=== PATIENT | male | born 1980 | race Caucasian/White ===

== ENCOUNTER 2016-11-21 20:32 | Inpatient (IN) | payer OTHER ==
--- NOTE | ~2016-11-21 | OR ---
Unit #: [id number] #: [id number] Patient: BRAD COLE [id number] [address] [place], [place] [address] [id number] MR#: [id number] NAME: BRAD COLE ROOM: [facility] Date of Procedure: 11/21/2016 Admission Date: 11/21/2016 Surgeon: Kerri Terrazas M.D. : 1980 Attending Physician: Darlene Terrazas M.D. Primary Care Physician: [facility]. PROCEDURE OPERATIVE NOTE PROCEDURE PERFORMED Right femoral line central line placement with ultrasound guidance. INDICATION FOR PROCEDURE Status post cardiac arrest. DESCRIPTION OF THE PROCEDURE An informed consent was waived as the procedure was emergent. The patient was prepped and positioned a proper way. Then, was cleaned with chlorhexidine and body drape was applied. Then, with ultrasound guidance, a needle was inserted in the right femoral vein and good blood flow was obtained. Guidewire was inserted and the needle was removed. A catheter was inserted over the guidewire and the guidewire was removed. The catheter was flushed appropriately and sutured in place. Biopatch and clean dressing were applied. Dictated by... Kerri Terrazas M.D. EA/barbie TD: 11/22/2016 05:59 JOB #: [id number] PROCEDURE OPERATIVE NOTE X KERRI TOUSSAINT MD PROCEDURE OPERATIVE NOTE
--- NOTE | ~2016-11-21 | CR72 ---
[facility] A Service of [facility] RADIOLOGY TEXT RESULTS PATIENT: BRAD COLE LOCATION: [address] : [birth year] UNIT #: [id number] AGE: [address]: Court Rausch MD SEX: M ORDER DR: [id number] [facility] [address]. [place], [place] [address] [id number] MR#: [id number] Acc #: [id number] NAME: BRAD COLE. : 1980 SEX: M STUDY DATE/TIME: 11/23/2016 6:05 UNIT: [facility] ROOM: [facility] STUDY DESCRIPTION: CR Chest Single View Portable Attending Physician: Hermila Wiggins M.D. Ordering Physician: Carole Terrazas M.D. Primary Care Physician: [facility]. MEDICAL IMAGING REPORT This report is preliminary unless electronic signature is present EXAM Portable chest, 11/23 INDICATION Status post respiratory failure and cardiac arrest from overdose. FINDINGS AP portable chest is compared with 11/21/2016. ET tube tip is just below the thoracic inlet about 8.0 cm above the oscar. Consider advancing the tube at least 3.0 cm. There are bilateral perihilar infiltrates but they are much improved since the prior study. This may reflect resolving edema or component of pneumonia. No pneumothorax is seen. Heart size normal. Dictated by... Dane Jay Jr., M.D. THIS IS AN ELECTRONICALLY VERIFIED REPORT Dane Jay Jr., M.D. at 11/23/2016 3:50 PM FELTON/lj TD: 11/23/2016 09:10 JOB #: [id number] MEDICAL IMAGING REPORT COPY
--- NOTE | ~2016-11-21 | CR72 ---
[facility] A Service of [facility] & [facility] RADIOLOGY TEXT RESULTS PATIENT: BRAD COLE LOCATION: [place] [id number] : [birth year] UNIT #: [id number] AGE: [address]: Hermila Wiggins MD SEX: M ORDER DR: [id number] [facility] [address]. [place], [place] [address] [id number] I MR#: [id number] Acc #: [id number] NAME: BRAD COLE. : 1980 SEX: M STUDY DATE/TIME: 11/21/2016 20:19 UNIT: [facility] ROOM: [facility] STUDY DESCRIPTION: CR Chest Single View Portable Attending Physician: Hermila Wiggins M.D. Ordering Physician: Meena Morales M.D. [facility] MED[facility]AG[facility] REPORT This report is preliminary unless electronic signature is present EXAM PA and lateral chest HISTORY Unresponsive following heroin overdose today. ETT placement. Respiratory failure. FINDINGS ETT tip is 7.5 cm above the oscar. There are moderately extensive diffuse bilateral pulmonary infiltrates, new compared to 11/11/2016, which could be due to pneumonia or edema. Cardiac and mediastinal contours are normal. Dictated by... Jarvis Tong M.D. THIS IS AN ELECTRONICALLY VERIFIED REPORT Jarvis Tnog M.D. at 11/22/2016 3:15 PM CAMILLE/lj TD: 11/22/2016 08:14 JOB #: [id number] MEDICAL IMAGING REPORT COPY
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
--- NOTE | ~2016-11-21 | EKG ---
PATIENT: BRAD COLE UNIT #: [id number] Ventricular Rate: 136 BPM Atrial Rate: 133 BPM QRS Duration: 86 ms Q-T Interval: 294 ms QTC Calculation(Bezet): 442 ms Calculated R [place]: 69 degrees Calculated T [place]: 15 degrees Diagnosis Line: Atrial fibrillation with rapid ventricular Diagnosis Line: response Diagnosis Line: Nonspecific ST abnormality Diagnosis Line: Abnormal ECG Diagnosis Line: When compared with ECG of 21-NOV-2016 19:17, Diagnosis Line: (unconfirmed) Diagnosis Line: Atrial fibrillation has replaced Sinus rhythm Diagnosis Line: Vent. rate has increased BY 52 BPM Diagnosis Line: Criteria for Septal infarct are no longer Present Diagnosis Line: ST now depressed in Anterolateral leads Diagnosis Line: T wave inversion now evident in Inferior leads Diagnosis Line: Confirmed by NIA PALMER MD ([id number]) on 11/22/2016 Diagnosis Line: 7:08:10 AM INTERPRETING MD: ESTELA FELIZ
--- NOTE | ~2016-11-21 | DS ---
Unit #: [id number] #: [id number] Patient: BRAD COLE [id number] [address] [address] [id number] I MR#: [id number] NAME: BRAD COLE. ROOM: [facility] Age: 36 Sex: M Admission Date: 11/21/2016 : 1980 Discharge Date: 11/23/2016 Attending Physician: Court Rausch M.D. Primary Care Physician: [facility]. DISCHARGE SUMMARY SUMMARY Please see H and P for complete details of initial part of hospital course. The patient is a 36-year-old male, prior history of IV drug abuse, heroin, who was brought to the emergency department status post intubation and resuscitated on arrival by EMS services. He was noted to be in acute cardiopulmonary arrest. EMS responded initially to the patient's home. He was unresponsive. He was noted to be in PEA on arrival. He received Narcan, epinephrine. He was down for approximately 20 minutes, from 1902 to 1925. His ABG on arrival reveals a pH of 6.8, pCO2 of 91, pO2 of 165, lactate 9.6. CT head was performed on day of admission which did reveal cerebral edema as well as questionable effacement of the basilar cisterns. He was maintained on ventilator support. He was weaned off of sedation. He had no appreciable neurological response. He did not respond to any painful stimuli. Discussion was then initiated with family after pulmonary services and cardiology services and both recommended comfort care measures only and his overall prognosis was poor. After reviewing his case with the patient's father, who was present at bedside, all family members have agreed to withdrawal current ventilator support as the felt as though the patient would not have wanted to live in this current state. Therefore, his ventilator will be subsequently discontinued and comfort care measures will be initiated. The patient's family and father are well aware of his overall poor prognosis. FINAL/CURRENT CLINICAL DIAGNOSES 1. Resuscitated arrest. 2. Pulseless electrical activity times approximately 20 minutes. 3. Intravenous drug abuse. 4. Hepatitis C. 5. Anoxic encephalopathy. Unit #: [id number] #: [id number] Patient: BRAD COLE DISCHARGE PLAN Comfort care measures only. Dictated by... Jose Lugo TD: 11/26/2016 06:45 JOB #: [id number] DISCHARGE SUMMARY X Court Rausch MD X DISCHARGE SUMMARY
--- NOTE | ~2016-11-21 | CT71 ---
[facility] A Service of [facility] RADIOLOGY TEXT RESULTS PATIENT: BRAD COLE LOCATION: [place] [address] : [birth year] UNIT #: [id number] AGE: [address]: Hermila Wiggins MD SEX: M ORDER DR: [id number] [facility] [address]. [place], [place] [address] [id number] I MR#: [id number] Acc #: [id number] NAME: BRAD COLE. : 1980 SEX: M STUDY DATE/TIME: 11/21/2016 20:49 UNIT: [facility] ROOM: [facility] STUDY DESCRIPTION: CT Head Wo Contrast Attending Physician: Hermila Wiggins M.D. Ordering Physician: Meena Morales M.D. [facility] MED[facility]AGING REPORT This report is preliminary unless electronic signature is present EXAM Noncontrast head CT. HISTORY Altered mental status. Cardiac arrest, unresponsive today. COMPARISON Comparison head CT 09/02/2011, TECHNIQUE This CT exam was performed with one or more of the following radiation dose reduction techniques: automatic exposure control, adjustment of mA and/or kV according to patient size, and iterative reconstruction. FINDINGS Axial noncontrast imaging of the brain demonstrates diffuse decreased attenuation of the periventricular white matter. There is also questionable as effacement of the basilar cisterns, particularly about the kevin, and midbrain and this may be indicative of developing cerebral edema. No hemorrhage or abnormal extraaxial fluid collections. No large vessel infarct. Fluid in the left maxillary sinus. Ethmoid and sphenoid sinuses nonspecific and this intubated patient. There are right maxillary sinus polyps or retention cyst. Mastoids and skull base unremarkable. IMPRESSION 1. Decreased attenuation of the periventricular white matter diffusely, as well as a questionable effacement of the basilar cisterns could represent developing cerebral edema. No evidence of midline shift and no evidence of extraaxial fluid collection or intraparenchymal hemorrhage. 2. Left maxillary bilateral ethmoid and sphenoid sinus fluid nonspecific in this patient, apparently intubated. STS. [facility] A Service of [facility] RADIOLOGY TEXT RESULTS PATIENT: BRAD COLE LOCATION: [address] : [birth year] UNIT #: [id number] AGE: [address]: Hermila Wiggins MD SEX: M ORDER DR: Dictated by... Katie Hope M.D. THIS IS AN ELECTRONICALLY VERIFIED REPORT Katie Hope M.D. at 11/22/2016 5:04 PM Ella TD: 11/22/2016 08:24 JOB #: [id number] MEDICAL IMAGING REPORT COPY
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
--- NOTE | ~2016-11-21 | HP ---
Unit #: [id number] #: [id number] Patient: BRAD COLE [id number] [address] [address] [id number] MR#: [id number] NAME: BRAD COLE. ROOM: [facility] Age: 36 Sex: M Admission Date: 11/21/2016 : 1980 Attending Physician: Darlene Terrazas M.D. Primary Care Physician: [facility]. HISTORY AND PHYSICAL CHIEF COMPLAINT Resuscitated arrest. HISTORY OF PRESENT ILLNESS The patient is a 36-year-old male with a history of IV drug abuse/heroin, brought to the emergency room with a cardiopulmonary arrest. The patient was intubated and resuscitated. Unable to provide the history of the patient, which is obtained by speaking to the ER physician and the RN at the bedside, as no family members are available at the bedside. EMS was called for the patient at home for the patient's unresponsiveness. When EMS arrived, the patient was with unresponsiveness. The patient had a cardiac arrest en route to the hospital with (1) PEA. The patient received Narcan and Epi. The patient was down for 20 minutes. The EMS (2) for the line. The patient was down from 1901 to 1924. The patient has a history of urine abuse and hep C in the past and the patient's ABG at the time of arrival is pH of 6.8 and pCO2 of 91, pO2 165 with a lactate of 9.6. No further history is available. History of urine orders and hep C. PAST MEDICAL HISTORY History of anxiety, depression, diverticulitis, schizoaffective disorder, hep C, heroin and meth user. PAST SURGICAL HISTORY Bilateral lung surgery. HOME MEDICATIONS None. ALLERGIES Amoxicillin of unknown reaction. SOCIAL HISTORY Smokes 1/2 packs per day and thus no alcohol use but IV drug abuse with heroin and meth. REVIEW OF SYSTEMS Unable to obtain. FAMILY HISTORY Unable to obtain. PHYSICAL EXAMINATION GENERAL: The patient is status post intubation and sedation. Unit #: [id number] #: [id number] Patient: BRAD COLE VITAL SIGNS: The temperature is 96.1, pulse 116, respiration 38, and blood pressure is 83/46. HEENT: Head atraumatic, normocephalic and sluggish. Pupils sluggish and sluggish reaction. No pallor. No icterus. NECK: Status post oral tracheal intubation. LUNGS: Positive breath sounds and decreased air entry at the basis. Positive for rhonchi and rales. HEART: Tachycardiac. Irregular rate and rhythm. ABDOMEN: Soft. Positive bowel sounds. EXTREMITIES: Positive for track peralta on the upper extremities and pink frothy sputum and vomitus all over the face. NEUROLOGIC: Sedated and intubated. DIAGNOSTIC STUDIES LABORATORY DATA: pH of 6.8, pCO2 91, pO2 165, bicarb 15, oxygen saturation 94.4. Glucose 156, BUN 28, creatinine 1.4, sodium 144, potassium 3.5, chloride 105, bicarb 23, calcium 7.7, magnesium 3, total protein 5.3, albumin 3.1, AST 177, ALT 96, alk phos 85, lactic acid 9.6, alcohol less than 5, INR is 1.1. D-dimer is more than 1,000. WBC 9.4, hemoglobin 14.6, hematocrit 43.5, platelet 231. Urine tox screen and UA are pending. IMAGING STUDIES: Chest x-ray shows decreased bilateral pulmonary infiltrate. CT of the head showed decreased attenuation or effacement of the basilar cisterns consistent with developing cerebral edema. No shift and no intracranial bleed. CARDIOLOGY STUDIES: The EKG shows AFib with a rapid ventricular rate of 136 and QTC of 142. ASSESSMENT 1. Cardiopulmonary arrest. 2. Drug abuse, mainly heroin. 3. Acute respiratory failure. 4. Atrial fibrillation. 5. Developing cerebral edema. PLAN Plan to admit the patient to the ICU. Continue septic shock protocol and continue with the empiric antibiotics with vancomycin and Zosyn and check the troponins and check the echocardiogram. Will have cardiology consult. Repeat the CBC and BMP in the morning. Will talk to the family once available. Guarded prognosis and further recommendations will follow as more lab results are available. Dictated by Jose Driscoll TD: 11/22/2016 05:04 JOB #: [id number] Unit #: [id number] #: [id number] Patient: BRAD COLE HISTORY AND PHYSICAL X X HISTORY AND PHYSICAL
--- NOTE | ~2016-11-21 | CO ---
Unit #: [id number] #: [id number] Patient: BRAD COLE [id number] [address] [address] [id number] MR#: [id number] NAME: BRAD COLE. ROOM: [facility] Age: 36 Sex: M Admission Date: 11/21/2016 : 1980 Attending Physician: Darlene Terrazas M.D. Primary Care Physician: [facility]. Consultation Date: 11/21/2016 CONSULTATION REPORT REASON FOR ADMISSION ICU management. HISTORY OF PRESENT ILLNESS This is a 36-year-old male with a past medical history significant for polysubstance abuse, who presented to the emergency room with drug overdose and cardiac arrest. Per girlfriend, the patient was last seen normal an hour and a half before presentation. When girlfriend went to check on the patient he was down and breathing funny. He had blood around him and he looked almost blue. She called EMS and when EMS arrived the patient had pulse but en route to the hospital patient lost his pulse and he was resuscitated. By the time he made it to the hospital it was almost 20 minutes and patient, at that time, had pulse back. He is currently unresponsive but he is having myoclonus, jerking and is very restless on the ventilator. REVIEW OF SYSTEMS Unable to obtain. PAST MEDICAL HISTORY Polysubstance abuse. PAST SURGICAL HISTORY None. FAMILY HISTORY Hypertension, coronary artery disease. SOCIAL HISTORY The patient has positive history of polysubstance abuse. He smokes but no history of alcohol. ALLERGIES No known drug allergies. PHYSICAL EXAMINATION GENERAL: The patient is very restless on the ventilator. VITAL SIGNS: Blood pressure 113/62, respiratory rate 38, O2 saturation 85%. HEENT: Atraumatic, normocephalic. NECK: Supple. No JVD, no lymphadenopathy. CHEST: Bilateral fine rhonchi. HEART: S1, S2. Sinus tachycardia. Unit #: [id number] #: [id number] Patient: BRAD COLE ABDOMEN: Soft, nontender. Bowel sounds positive. No hepatosplenomegaly. EXTREMITIES: No edema or cyanosis. SKIN: No rashes. DUMP GRADER: Patient intubated but not sedated. He is not following any commands. There is no painful stimuli withdrawal. Patient with constant generalized myoclonus jerking. DIAGNOSTIC STUDIES LABORATORY: Lactic acid 9.6, creatinine 1.4, white blood count 9.4, hemoglobin 14.6. IMPRESSION 1. Acute hypoxic respiratory failure. 2. Adult respiratory distress syndrome. 3. Pulseless electrical activity cardiac arrest. 4. Polysubstance abuse. 5. Drug overdose. 6. Lactic acidosis. 7. Hypercarbic and metabolic acidosis. 8. Anoxic brain injury. PLAN 1. The patient is very critical on the vent with very poor prognosis. 2. Continue vent support pending family decision. 3. Code status is full but I will discuss with family DNR status. 4. IV hydration. 5. Zosyn for aspiration pneumonia. 6. Patient is not a candidate for hypothermia protocol. 7. DVT/GI prophylaxis. Dictated by... Kerri Terrazas M.D. EA/barbie TD: 11/22/2016 05:50 JOB #: [id number] CONSULTATION REPORT X KERIR TOUSSAINT MD X CONSULTATION REPORT
[2016-11-21 20:16] LABS: ARTERIAL BLD GAS O2 SATURATION 94.4 % (90.0-100.0); ARTERIAL BLOOD GAS CARBOXY HB 2.3 %sat (0.0-9.0); ARTERIAL BLOOD GAS HCO3 15.6 mmol/L; ARTERIAL BLOOD GAS MET HB 0.9 %sat (0.0-2.0)
[2016-11-21 20:25] LABS: ARTERIAL BLOOD GAS PCO2 91.1 mmHg (35.0-45.0); ARTERIAL BLOOD GAS pH 6.842 (7.350-7.450); ARTERIAL DRAW? YES
[2016-11-21 20:26] LABS: ARTERIAL BLOOD GAS ALLEN TEST NORMAL; ARTERIAL BLOOD GAS ART SITE RIGHT RADIAL; ARTERIAL BLOOD GAS DELIVERY VENT; ARTERIAL BLOOD GAS VENT MODE AC
[~2016-11-21 20:32] MED LIST: BACLOFEN10 MG PO; IBUPROFEN800 MG PO; STERAPRED5 MG/DOSE1 PO; VISTARIL PO; VOLTAREN75 MG PO
[2016-11-21 20:54] LABS: BASOPHIL# 0.1 X10e3 (0-0.3); BASOPHIL% 1.1 % (0-2.5); EOSINOPHIL# 0.1 X10e3 (0-0.7); EOSINOPHIL% 1.1 % (0.0-7.0); HEMATOCRIT 43.5 % (38.0-50.0); HEMOGLOBIN 14.6 gm/dL (13.0-16.0); LYMPHOCYTE# 2.7 X10e3 (1.0-3.5); LYMPHOCYTE% 28.8 % (17.0-45.0); MEAN CELL VOLUME 93.7 FL (83-96); MEAN CORPUSCULAR HEMOGLOBIN 31.4 PG (28-34); MEAN CORPUSCULAR HGB CONC 33.5 g/dL (30-36); MEAN PLATELET VOLUME 7.8 FL (6.5-11.5); MONOCYTE# 0.3 X10e3 (0-1.0); MONOCYTE% 3.4 % (3.0-12.0); NEUTROPHIL# 6.1 X10e3 (1.5-7.1); NEUTROPHIL% 65.6 % (40-75); PLATELET COUNT 231 X10e3 (140-420); RED BLOOD COUNT 4.65 X10e (3.90-5.60); RED CELL DISTRIBUTION WIDTH 13.3 % (11.0-15.5); WHITE BLOOD COUNT 9.4 X10e3 (4.0-10.5)
[2016-11-21 20:56] LABS: DIFF IND NO
[2016-11-21 21:10] LABS: INR 1.1; PARTIAL THROMBOPLASTIN TIME 29.4 SECONDS (23.5-31.3); PROTHROMBIN TIME (PATIENT) 11.8 SECONDS (9.6-11.5)
[2016-11-21 21:18] LABS: ALBUMIN SERUM 3.1 g/dL (3.5-5.0); ALKALINE PHOSPHATASE 85 U/L (32-92); ALT (SGPT) 96 U/L (10-40); AST (SGOT) 127 U/L (10-42); BILIRUBIN, DIRECT 0.2 mg/dL (0.0-0.2); BILIRUBIN,INDIRECT 0.5 mg/dL (0.0-0.9); BILIRUBIN,TOTAL 0.7 mg/dL (0.2-2.0); BLOOD UREA NITROGEN 28 mg/dL (9-23); CALCIUM SERUM 7.7 mg/dL (8.4-10.2); CARBON DIOXIDE 23 mmol/L (22-31); CHLORIDE 105 mmol/L (100-111); CREATININE SERUM 1.4 mg/dL (0.6-1.4); GLOM FILT RATE Estimated ABOVE60 mL/min (>60); GLUCOSE FASTING 156 mg/dL (70-110); POTASSIUM 3.5 mmol/L (3.5-5.1); PROTEIN TOTAL SERUM 5.3 g/dL (6.0-8.3); SODIUM 144 mmol/L (135-145)
[2016-11-21 21:27] LABS: D DIMER >10000 NG/ML (45-500)
[2016-11-21 21:29] LABS: ALCOHOL BLOOD <5 mg/dL (0)
[2016-11-21 22:14] LABS: URINE SOURCE CLEAN CATCH
[2016-11-21 22:20] LABS: URINE APPEARANCE TURBID; URINE BILIRUBIN NEG (NEG); URINE BLOOD 2+ (NEG); URINE COLOR YELLOW; URINE GLUCOSE NEG (NEG); URINE KETONE NEG (NEG); URINE LEUKOCYTE ESTERASE NEG (NEG); URINE NITRATE NEG (NEG); URINE SPECIFIC GRAVITY 1.015 (1.003-1.035)
[2016-11-21 22:23] LABS: CULTURE INDICATED? YES; URINE BACTERIA AUWI 3+ (NEGATIVE); URINE SQUAMOUS EPITHELIAL CELL FEW /[HPF]; UWBCS1 AUWI 200-300 (0-5)
[2016-11-21 22:25] LABS: URINE PROTEIN 1+ (NEG)
[2016-11-21 22:25] LABS: ARTERIAL BLD GAS O2 SATURATION 83.8 % (90.0-100.0); ARTERIAL BLOOD GAS CARBOXY HB 1.1 %sat (0.0-9.0); ARTERIAL BLOOD GAS HCO3 21.5 mmol/L; ARTERIAL BLOOD GAS MET HB 0.6 %sat (0.0-2.0)
[2016-11-21 22:28] LABS: ARTERIAL BLOOD GAS ALLEN TEST Y; ARTERIAL BLOOD GAS ART SITE RIGHT RADIAL; ARTERIAL BLOOD GAS PCO2 53.8 mmHg (35.0-45.0); ARTERIAL BLOOD GAS VENT MODE A/C; ARTERIAL DRAW? YES
[2016-11-21 22:41] LABS: URINE AMORPHOUS SEDIMENT AMORP URATES; URINE SPERM PRESENT
[2016-11-21 22:43] LABS: AMPHETAMINE POS (NEG); BARBITURATES NEG (NEG); BENZODIAZEPINES NEG (NEG); COCAINE NEG (NEG); MARIJUANA NEG (NEG); OPIATES POS (NEG); TRICYCLIC ANTIDEPRESSANTS NEG (NEG); U METHADONE NEG (NEG)
[2016-11-22 00:01] LABS: POC - TROPONIN <0.05 ng/mL (<=0.05)
[2016-11-22 02:38] LABS: BASOPHIL% 0.3 % (0-2.5); EOSINOPHIL% 0.1 % (0.0-7.0); HEMOGLOBIN 15.4 gm/dL (13.0-16.0); LYMPHOCYTE# 0.6 X10e3 (1.0-3.5); LYMPHOCYTE% 8.4 % (17.0-45.0); MEAN CORPUSCULAR HEMOGLOBIN 31.1 PG (28-34); MEAN CORPUSCULAR HGB CONC 33.5 g/dL (30-36); MEAN PLATELET VOLUME 7.7 FL (6.5-11.5); MONOCYTE# 0.4 X10e3 (0-1.0); MONOCYTE% 5.1 % (3.0-12.0); NEUTROPHIL# 6.2 X10e3 (1.5-7.1); NEUTROPHIL% 86.1 % (40-75); PLATELET COUNT 200 X10e3 (140-420); RED BLOOD COUNT 4.95 X10e (3.90-5.60); RED CELL DISTRIBUTION WIDTH 13.4 % (11.0-15.5); WHITE BLOOD COUNT 7.1 X10e3 (4.0-10.5)
[2016-11-22 02:40] LABS: DIFF IND NO
[2016-11-22 03:03] LABS: BLOOD UREA NITROGEN 33 mg/dL (9-23); BUN/CREATININE RATIO 23.57; CALCIUM SERUM 6.9 mg/dL (8.4-10.2); CARBON DIOXIDE 24 mmol/L (22-31); CHLORIDE 115 mmol/L (100-111); CREATININE SERUM 1.4 mg/dL (0.6-1.4); GLOM FILT RATE Estimated ABOVE60 mL/min (>60); GLUCOSE FASTING 119 mg/dL (70-110); POTASSIUM 4.4 mmol/L (3.5-5.1); SODIUM 140 mmol/L (135-145)
[2016-11-22 03:22] LABS: %MB 1.6 % (0.0-4.0)
[2016-11-22 04:00] LABS: ARTERIAL BLD GAS O2 SATURATION 91.5 % (90.0-100.0); ARTERIAL BLOOD GAS CARBOXY HB 0.5 %sat (0.0-9.0); ARTERIAL BLOOD GAS HCO3 22.4 mmol/L; ARTERIAL BLOOD GAS MET HB 1.1 %sat (0.0-2.0); ARTERIAL BLOOD GAS PCO2 49.8 mmHg (35.0-45.0); ARTERIAL BLOOD GAS pH 7.261 (7.350-7.450)
[2016-11-22 04:12] LABS: ARTERIAL BLOOD GAS ALLEN TEST NORMAL; ARTERIAL BLOOD GAS ART SITE RIGHT RADIAL; ARTERIAL BLOOD GAS DELIVERY VENT; ARTERIAL BLOOD GAS PO2 71.3 mmHg (80.0-100); ARTERIAL BLOOD GAS VENT MODE A/C; ARTERIAL DRAW? YES
[2016-11-22 09:57] LABS: ALBUMIN SERUM 2.9 g/dL (3.5-5.0); BILIRUBIN, DIRECT 0.3 mg/dL (0.0-0.2); BILIRUBIN,INDIRECT 0.7 mg/dL (0.0-0.9); PROTEIN TOTAL SERUM 4.9 g/dL (6.0-8.3)
[2016-11-22 10:03] LABS: %MB 1.7 % (0.0-4.0); MB 11.4 ng/ml
[2016-11-23 05:21] LABS: BASOPHIL% 0.2 % (0-2.5); EOSINOPHIL# 0.1 X10e3 (0-0.7); EOSINOPHIL% 0.4 % (0.0-7.0); HEMATOCRIT 35.3 % (38.0-50.0); LYMPHOCYTE# 1.6 X10e3 (1.0-3.5); LYMPHOCYTE% 11.4 % (17.0-45.0); MEAN CELL VOLUME 93.5 FL (83-96); MEAN CORPUSCULAR HEMOGLOBIN 31.7 PG (28-34); MEAN CORPUSCULAR HGB CONC 33.9 g/dL (30-36); MEAN PLATELET VOLUME 8.6 FL (6.5-11.5); MONOCYTE# 0.8 X10e3 (0-1.0); MONOCYTE% 6.2 % (3.0-12.0); NEUTROPHIL# 11.2 X10e3 (1.5-7.1); NEUTROPHIL% 81.8 % (40-75); PLATELET COUNT 154 X10e3 (140-420); RED BLOOD COUNT 3.78 X10e (3.90-5.60); RED CELL DISTRIBUTION WIDTH 13.6 % (11.0-15.5)
[2016-11-23 05:41] LABS: DIFF IND NO; WHITE BLOOD COUNT 13.7 X10e3 (4.0-10.5)
[2016-11-23 06:20] LABS: ALBUMIN SERUM 2.7 g/dL (3.5-5.0); ALKALINE PHOSPHATASE 53 U/L (32-92); ALT (SGPT) 72 U/L (10-40); AST (SGOT) 83 U/L (10-42); BILIRUBIN,TOTAL 0.9 mg/dL (0.2-2.0); BLOOD UREA NITROGEN 17 mg/dL (9-23); BUN/CREATININE RATIO 15.45; CALCIUM SERUM 7.3 mg/dL (8.4-10.2); CARBON DIOXIDE 25 mmol/L (22-31); CHLORIDE 111 mmol/L (100-111); CREATININE SERUM 1.1 mg/dL (0.6-1.4); GLOM FILT RATE Estimated ABOVE60 mL/min (>60); GLUCOSE FASTING 123 mg/dL (70-110); POTASSIUM 4.1 mmol/L (3.5-5.1); PROTEIN TOTAL SERUM 5.1 g/dL (6.0-8.3); SODIUM 142 mmol/L (135-145)
[2016-11-25 16:55] LABS: HA AB IGM (HEPPAN) Nonreactive (Nonreactive); HB CORE AB IGM (HEPPAN) Nonreactive (Nonreactive); HB S AG (HEPPAN) Nonreactive (Nonreactive); HEP C AB (HEPPAN) Reactive (Nonreactive)
== END 2016-11-23 18:45 | DRG 917 ==
LOC: CED 20:32 → CEDOF 22:15 → CICCU2 23:55
PROVIDERS: Internal Medicine; Internal Medicine Cardiovascular Disease; Student in an Organized Health Care Education/Training Program
PROC: 0BH17EZ Insertion of Endotracheal Airway into Trachea, Via Natural or Artificial Opening (ICD-10-PCS; principal; 2016-11-21)
PROC: 5A1945Z Respiratory Ventilation, 24-96 Consecutive Hours (ICD-10-PCS; 2016-11-21)
PROC: 05H333Z Insertion of Infusion Device into Right Innominate Vein, Percutaneous Approach (ICD-10-PCS; 2016-11-21)
PROC: B54MZZA Ultrasonography of Right Upper Extremity Veins, Guidance (ICD-10-PCS; 2016-11-21)
PROC: B24BYZZ Ultrasonography of Heart with Aorta using Other Contrast (ICD-10-PCS; 2016-11-22)
DX: T40.1X1A Poisoning by heroin, accidental (unintentional), initial encounter (principal); G93.6 Cerebral edema; I46.9 Cardiac arrest, cause unspecified; J96.01 Acute respiratory failure with hypoxia; G93.1 Anoxic brain damage, not elsewhere classified; J69.0 Pneumonitis due to inhalation of food and vomit; E87.2 Acidosis; E44.1 Mild protein-calorie malnutrition; F11.10 Opioid abuse, uncomplicated; F41.9 Anxiety disorder, unspecified; F32.9 Major depressive disorder, single episode, unspecified; B19.20 Unspecified viral hepatitis C without hepatic coma; F25.9 Schizoaffective disorder, unspecified; F17.210 Nicotine dependence, cigarettes, uncomplicated; F15.10 Other stimulant abuse, uncomplicated; I48.0 Paroxysmal atrial fibrillation; F31.9 Bipolar disorder, unspecified; E83.51 Hypocalcemia; Z68.23 Body mass index [BMI] 23.0-23.9, adult
CPT/HCPCS: 36415; 36600; 51702; 70450; 71010; 80048; 80053; 80074; 80076; 80307; 81003; 82550; 82553; 82803; 82947; 83605; 83735; 84443; 84484; 85025; 85379; 85610; 85730; 87040; 87086; 87806; 93005; 93306; 94002; 94003; 94760; 96361; 96365; 96366; 96375; 99291; C9113; G0480; J0171; J2060; J2270; J2543; J3010; J3370